=== PATIENT | female | born 2000 | race Caucasian/White ===

== ENCOUNTER 2023-12-09 22:49 | Emergency (ER) | payer OTHER, SELFPAY ==
[2023-12-09 22:58] VITALS: BP 148/90; PULSE 81; TEMP 36.8; O2SAT 100; BMI 29.2
--- NOTE | 2023-12-09 23:28 | ED_ITS ---
HPI - Weakness General Chief complaint: Weakness Stated complaint: General Weakness, Unable to urinate Time Seen by Provider: 12/09/23 23:27 Source: patient Mode of arrival: walk-in Limitations: no limitations History of Present Illness HPI Narrative: at horse showing all weekend. drinking alcohol. was not drinking much H20. feels weak now. concern she is dehydrated. States she almost passed out but is feeling better now. Has some pain right lower back but feels this is because she was riding horses all weekend Related Data Home Medications ?Medication ?Instructions ?Recorded ?Confirmed No Known Home Medications 12/09/23 12/09/23 Allergies Allergy/AdvReac Type Severity Reaction Status Date / Time No Known Drug Allergies Allergy Verified 12/09/23 23:02 Review of Systems ROS Status of ROS 10 or more systems reviewed and unremark able except as noted in history and below Exam Constitutional Vital Signs, click to edit/add: Last Vital Signs Temp 98.3 F 12/09/23 22:58 Pulse 81 12/09/23 22:58 Resp 16 12/09/23 22:58 BP 133/88 12/10/23 00:43 Pulse Ox 100 12/09/23 22:58 O2 Del Method Room Air 12/09/23 22:58 Common normals: no apparent distress, average body habitus, oriented x3, no limitations, healthy appearing and alert [facility] Common normals: normocephalic and head/scalp atraumatic Eye Common normals: PERRL, EOMs intact bilaterally and conjunctivae normal Respiratory Common normals: normal respiratory effort, no retractions, no use of accessory muscles and clear to auscultation bilaterally Cardio Common normals: regular rate, regular rhythm, S1 normal heart sound and S2 normal heart sound GI Common normals: Normal to inspection, nondistended, normoactive bowel sounds present, soft to palpation and non-tender Extremity Common normals: normal to inspection and full ROM Neuro Common normals: oriented x3, CN's II-XII intact bilaterally, moves all extremities, no focal motor deficits and no sensory deficits noted Psych Appearance: grossly normal Course Vital Signs Vital signs: Vital Signs Temperature 98.3 F 12/09/23 22:58 Pulse Rate 81 12/09/23 22:58 Respiratory Rate 16 12/09/23 22:58 Blood Pressure 148/90 H 12/09/23 22:58 Pulse Oximetry 100 12/09/23 22:58 Oxygen Delivery Method Room Air 12/09/23 22:58 Temperature 98.3 F 12/09/23 22:58 Pulse Rate 81 12/09/23 22:58 Respiratory Rate 16 12/09/23 22:58 Blood Pressure 133/88 12/10/23 00:43 Pulse Oximetry 100 12/09/23 22:58 Oxygen Delivery Method Room Air 12/09/23 22:58 MDM - Weakness MDM Narrative Medical decision making narrative: patient presents complaining of light headed and near syncope. Out in the heat and not drinking fluids. HYdrated in the department and is feeling better. Discharged in stable condition to follow up with her doctor Lab Data Labs: Lab Results 12/09/23 12/09/23 Range/Units 23:00 23:05 WBC 9.5 (4.0-11.0) 10^3/uL RBC 3.97 L (4.20-5.40) 10^6/uL Hgb 12.6 (12.0-16.0) g/dL Hct 37.4 (36.0-48.0) % MCV 94.2 (81.0-99.0) fL MCH 31.7 (26.7-34.0) pg MCHC 33.7 (29.9-35.2) g/dL RDW 11.9 (11.0-15.0) % Plt Count 306 (150-450) 10^3/uL MPV 9.3 L (9.5-13.5) fL Neut % (Auto) 53.7 (43.0-75.0) % Lymph % (Auto) 32.7 (20.5-60.0) % [place] % (Auto) 10.1 (1.7-12.0) % Eos % (Auto) 2.9 (0.9-7.0) % Baso % (Auto) 0.4 (0.2-2.0) % Neut # (Auto) 5.1 (1.4-6.5) 10^3/uL Lymph # (Auto) 3.1 (1.2-3.8) 10^3/uL [place] # (Auto) 1.0 H (0.3-0.8) 10^3/uL Eos # (Auto) 0.3 (0.0-0.7) 10^3/uL Baso # (Auto) 0.0 (0.0-0.1) 10^3/uL Abs Immat Gran (auto) 0.02 (0.00-0.03) 10^3/uL Imm/Tot Granulo (auto) 0.2 (0.0-0.5) % Sodium 136 (136-145) mmol/L Potassium 3.4 L (3.5-5.1) mmol/L Chloride 100 (98-107) mmol/L Carbon Dioxide 29.5 (21.0-32.0) mmol/L Anion Gap 9.9 BUN 15.0 (7.0-18.0) mg/dL Creatinine 0.90 (0.55-1.02) mg/dL Est GFR ( Amer) >60 (>=60) Est GFR (Non-Af Amer) >60 (>=60) BUN/Creatinine Ratio 16.7 Glucose 95 (74-106) mg/dL Lactate 1.0 (0.4-2.0) mmol/L Calcium 8.8 (8.5-10.1) mg/dL Total Bilirubin 0.4 (0.2-1.0) mg/dL AST 17 (15-37) U/L ALT 20 (14-59) U/L Alkaline Phosphatase 85 (46-116) U/L Myoglobin 34 (9-82) ng/mL Total Protein 7.5 (6.4-8.2) g/dL Albumin 3.6 (3.4-5.0) g/dL Globulin 3.9 g/dL Albumin/Globulin Ratio 0.9 Urine Color Dk. orange (YELLOW) Urine Clarity Slightly cloudy A (CLEAR) Urine pH Color interference A (5.0-9.0) Ur Specific [place] <=1.005 A (1.005-1.025) Urine Protein Color interference A (NEG/TRACE) mg/dL Urine Glucose (UA) Color interference A (NEGATIVE) mg/dL Urine Ketones Color interference A (NEGATIVE) mg/dL Urine Occult Blood Color interference A (NEGATIVE) Urine Nitrite Color interference A (NEGATIVE) Urine Bilirubin Color interference A (NEGATIVE) Urine Urobilinogen Color interference A (0.2-1.0) EU/dL Ur Leukocyte Esterase Color interference A (NEGATIVE) Urine RBC 5-10 A (0-2) #/HPF Urine WBC 2-5 A (NONE SEEN) #/HPF Ur Squamous Epith Cells Few A (NONE/RARE) #/LPF Urine Crystals None seen (None Seen) #/HPF Amorphous Sediment Few Urine Bacteria None seen (NONE SEEN) #/HPF Urine Casts None seen (NONE SEEN) #/LPF Urine Mucus None seen (NONE SEEN) Ur Culture Indicated? No Ethanol Quant <3 mg/dL Discharge Plan Discharge Stand Alone Forms: Portal Instructions Chief Complaint: Weakness Clinical Impression: Dehydration Patient Disposition: Home, Self-Care Prescriptions / Home Meds: No Action No Known Home Medications Print Language: Norwegian Instructions: Dehydration (ED) Additional Instructions: drink plenty of fluids and follow up with your doctor for recheck Referrals: BESSIE ELIZABETH [Primary Care Provider] - 1 week
[2023-12-09] MEDS: 0.9 % SODIUM CHLORIDE 1,000 ML 999 ML IV (23:33)
[2023-12-09 23:38] LABS: Basophils Percent Auto 0.4 % (0.2-2.0); Eosinophils Absolute Auto 0.3 10^3/uL (0.0-0.7); Eosinophils Percent Auto 2.9 % (0.9-7.0); Hematocrit 37.4 % (36.0-48.0); Hemoglobin 12.6 g/dL (12.0-16.0); Immature Granulocytes Abs Auto 0.02 10^3/uL (0.00-0.03); Immature Granulocytes Pct Auto 0.2 % (0.0-0.5); Lymphocytes Absolute Auto 3.1 10^3/uL (1.2-3.8); Lymphocytes Percent Auto 32.7 % (20.5-60.0); Mean Corpuscular HGB Conc 33.7 g/dL (29.9-35.2); Mean Corpuscular Hemoglobin 31.7 pg (26.7-34.0); Mean Corpuscular Volume 94.2 fL (81.0-99.0); Mean Platelet Volume 9.3 fL (9.5-13.5); Monocytes Percent Auto 10.1 % (1.7-12.0); Neutrophils Absolute Auto 5.1 10^3/uL (1.4-6.5); Neutrophils Percent Auto 53.7 % (43.0-75.0); Platelet Count 306 10^3/uL (150-450); Red Blood Count 3.97 10^6/uL (4.20-5.40); Red Cell Distribution Width 11.9 % (11.0-15.0); White Blood Count 9.5 10^3/uL (4.0-11.0)
[2023-12-09 23:40] LABS: Color Urine DK. ORANGE (YELLOW); Specific Gravity Urine <=1.005 (1.005-1.025)
[2023-12-09 23:48] LABS: Clarity Urine SLIGHTLY CLOUDY (CLEAR)
[2023-12-09 23:51] LABS: Bilirubin Urine COLOR INTERFERENCE (NEGATIVE); Blood Urine COLOR INTERFERENCE (NEGATIVE); Glucose Urine UA COLOR INTERFERENCE mg/dL (NEGATIVE); Ketones Urine COLOR INTERFERENCE mg/dL (NEGATIVE); Protein Urine COLOR INTERFERENCE mg/dL (NEG/TRACE); Urine Microscopic Indicated YES; pH Urine COLOR INTERFERENCE (5.0-9.0)
[2023-12-09 23:52] LABS: Leukocyte Esterase Urine COLOR INTERFERENCE (NEGATIVE); Nitrite Urine COLOR INTERFERENCE (NEGATIVE); Urobilinogen Urine COLOR INTERFERENCE EU/dL (0.2-1.0)
[2023-12-09 23:54] LABS: Bacteria Urine NONE SEEN #/HPF (NONE SEEN); Mucus Urine NONE SEEN (NONE SEEN)
[2023-12-09 23:55] LABS: Amorphous Sediment Urine FEW; Cast Seen? NONE SEEN #/LPF (NONE SEEN); Crystals Seen? None Seen #/HPF (None Seen); Squamous Epithelial Cell Urine FEW #/LPF (NONE/RARE); Urine Culture Indicated NO
[2023-12-10 00:05] LABS: Alanine Aminotransferase 20 U/L (14-59); Albumin Globulin Ratio 0.9; Albumin Level 3.6 g/dL (3.4-5.0); Alkaline Phosphatase 85 U/L (46-116); Anion Gap 9.9; Aspartate Amino Transferase 17 U/L (15-37); BUN Creatinine Ratio 16.7; Bilirubin Total 0.4 mg/dL (0.2-1.0); Calcium 8.8 mg/dL (8.5-10.1); Carbon Dioxide 29.5 mmol/L (21.0-32.0); Chloride 100 mmol/L (98-107); Estimated GFR (African America >60 (>=60); Estimated GFR (Non-African Ame >60 (>=60); Globulin 3.9 g/dL; Glucose 95 mg/dL (74-106); Potassium 3.4 mmol/L (3.5-5.1); Sodium 136 mmol/L (136-145); Total Protein 7.5 g/dL (6.4-8.2)
[2023-12-10 00:15] LABS: Ethanol <3 mg/dL
[2023-12-10] MEDS: 0.9 % SODIUM CHLORIDE 1,000 ML 999 ML IV (00:41)
[2023-12-10 00:43] VITALS: BP 133/88
[2023-12-10 00:52] LABS: Myoglobin 34 ng/mL (9-82)
== END 2023-12-10 01:52 | disposition home or self-care (01) ==
PROVIDERS: Emergency Provider Internal Medicine; PCP Internal Medicine
DX: E86.0 Dehydration (principal)
CPT/HCPCS: 36415; 80053; 80320; 81001; 83605; 83874; 85025; 96360; 96361; 99284